=== PATIENT | male | born 1980 | race Caucasian/White ===

== ENCOUNTER 2018-10-15 05:50 | Day surgery (SDC) | payer BC, OTHER ==
[2018-10-15] MEDS: Lactated Ringers 1,000 ML IV SCH (06:15)
[2018-10-15] MEDS ORDERED: DIPRIVAN 200 MG/20 ML IV ONE ×3 (07:38→08:08)
[2018-10-15 09:20] VITALS: O2SAT 98
[2018-10-15 09:31] VITALS: BP 132/70
[2018-10-15 09:37] VITALS: PULSE 75
--- NOTE | 2018-10-15 11:37 | OP ---
SURGERY DATE/TIME: 10/15/2018 0800 PREOPERATIVE DIAGNOSES: 1) Gastroesophageal reflux. 2) Rectal bleeding. POSTOPERATIVE DIAGNOSES: 1) Mild gastritis. 2) Gastric fundal polyp. 3) Pedunculated polyp in the ascending colon. 4) Small sessile polyp in ascending colon. PROCEDURES: 1) Esophagogastroduodenoscopy with cold forceps biopsy. 2) Colonoscopy with polypectomy using hot snare. SURGEON: Dr. Malik. ANESTHESIA: Medications were given by the anesthesia department. HISTORY: The patient is a 38 year old white male who presented to the office with complaints of persistent gastroesophageal reflux pain. He also recently had been noticing rectal bleeding although he felt no hemorrhoids. He reports the bleeding is usually at the beginning of the bowel movement and painless. The patient was felt the need to have endoscopic evaluation. He was appraised of the risks of the procedure including the risk of perforation, phlebitis, untoward reaction to medication, bleeding and missed lesions. The patient verbalized his understanding and desired to have the procedure performed. DESCRIPTION OF PROCEDURE: The patient was given the medications by the anesthesia department. He had continuous pulse oximetry, ECG monitoring, intermittent blood pressure monitoring and tidal CO2 monitoring during the examination. He was placed in the left lateral decubitus position. A bite block was placed and the flexible Olympus gastroscope was used to intubate the oropharynx. A view of the larynx was obtained and was normal. The scope was easily introduced in the esophagus which was normal throughout its length. The stomach was entered. The gastric nunez was suctioned dry and stomach was re-insufflated. The gastric rugal folds distended nicely with the insufflation of air. The scope was passed along the greater curvature of the stomach to the antrum. The pylorus encountered and intubated. Duodenum inspected and found to be normal. The scope is withdrawn from the duodenum. Next, the scope was retroflexed revealing a small gastric fundal polyp. No other mucosal lesions being encountered here the scope was redirected towards the gastric antrum. Biopsies were obtained to rule out the presence of Helicobacter pylori-type organisms using cold forceps biopsy was also obtained from the gastric fundal polyp. The scope was then removed from the patient. Next, a digital rectal exam was performed and revealed normal anal sphincter tone, no masses and normal prostate. No evidence of bleeding was noted at this time. The flexible Olympus pediatric colonoscope was used to intubate the rectum. A view of the colon was developed sequentially to the cecum including a short distance in the terminal ileum. Upon insertion and withdrawal, including a retroflex view in the rectum was noted a small polyp that was pedunculated in the ascending colon this was removed using hot polypectomy snare retrieved for pathologic evaluation. There was also noted a sessile polyp very small noted in the ascending and in the descending colon, this is biopsied using cold forceps technique. The scope was removed from the patient who tolerated the procedure well and was sent back to OP recovery in good condition. The prep was noted to be good.
== END 2018-10-15 09:45 | disposition home or self-care (01) ==
LOC: SDC 05:50
PROVIDERS: ATTEND Family Medicine
DX: K29.70 Gastritis, unspecified, without bleeding (principal); K21.9 Gastro-esophageal reflux disease without esophagitis; K63.5 Polyp of colon; K31.7 Polyp of stomach and duodenum; D12.2 Benign neoplasm of ascending colon; D12.4 Benign neoplasm of descending colon
CPT/HCPCS: J2704

== ENCOUNTER 2022-07-22 06:06 | Day surgery (SDC) | payer BC, OTHER ==
[2022-07-22] MEDS ORDERED: Lactated Ringers 1,000 ML IV SCH (06:30)
[2022-07-22] MEDS ORDERED: Versed 2 MG/2 ML Injection ONE (07:32)
[2022-07-22] MEDS ORDERED: DIPRIVAN 200 MG/20 ML IV ONE ×2 (07:32→07:46)
[2022-07-22] MEDS ORDERED: SUBLIMAZE 100 MCG/2 ML ONE (07:47)
[2022-07-22 08:40] VITALS: BP 146/95; PULSE 62; O2SAT 94
--- NOTE | 2022-07-22 09:33 | OP ---
SURGERY DATE: 07/22/2022 SURGERY TIME: 734 PREOPERATIVE DIAGNOSIS: 1. RECTAL BLEEDING. POSTOPERATIVE DIAGNOSIS: 1. SMALL POLYPS IN THE TRANSVERSE AND DESCENDING COLON, OTHERWISE NORMAL COLON. PROCEDURE: 1. Colonoscopy. SURGEON: Dr. Malik. ANESTHESIA: MAC. Medications given by the Anesthesia Department. BRIEF HISTORY: The patient is a 41 y/o WM patient presenting now for colonoscopic evaluation. He reported he had some rectal bleeding. The patient was felt to need to have endoscopic evaluation. He was described the risks of the procedure including the risk of perforation, phlebitis, untoward reaction to medication, bleeding, and missed lesions. The patient verbalized his understanding and desired to have the procedure performed. DESCRIPTION OF PROCEDURE: The patient was given the medications by the Anesthesia Department. He had continuous pulse oximetry, ECG monitoring, and intermittent BP monitoring during the examination. He was placed in the left lateral decubitus position. A digital rectal examination was performed and revealed normal anal sphincter tone, no masses, and a normal prostate. The flexible Olympus pediatric colonoscope was used to intubate the rectum. A view of the colon was developed sequentially to the cecum including a short distance into the terminal ileum. Upon insertion and withdrawal, was noted a small polyp in the transverse colon. This was biopsied and destroyed using multiple passes of the cold forceps biopsy. There was also noted a 2nd slightly larger polyp measuring approximately 1 cm in size in the descending colon. This was likewise treated with passes of the cold forceps biopsy to destroy the lesion. No other mucosal lesions being encountered, the scope was removed from the patient who tolerated the procedure well and was sent back to OP recovery in good condition. The prep was noted to be good.
== END 2022-07-22 08:52 | disposition home or self-care (01) ==
LOC: SDC 06:06
PROVIDERS: ATTEND Family Medicine
DX: K62.5 Hemorrhage of anus and rectum (principal); D12.3 Benign neoplasm of transverse colon; D12.4 Benign neoplasm of descending colon
CPT/HCPCS: J2250; J2704; J3010

== ENCOUNTER 2023-01-24 09:10 | Emergency (ER) | payer BC, OTHER ==
[2023-01-24 09:15] VITALS: TEMP 97.9
[2023-01-24] MEDS ORDERED: MORPHINE SULFATE 2 MG INJ IV ONE (09:17)
[2023-01-24] MEDS ORDERED: Zofran 4 MG/2 ML VIAL IV ONE (09:17)
[2023-01-24] MEDS ORDERED: BABY ASPIRIN 81 MG CHEW PO ONE (09:17)
--- NOTE | 2023-01-24 09:17 | ERPHSYRPT ---
- History of Present Illness Time Seen by Provider: 01/24/23 09:12 Historian: patient Exam Limitations: no limitations Physician History: This is a 42-year-old white male patient who has no known cardiac issues and presents with sudden onset of central chest pain that is sharp and stabbing and goes into his back between the shoulder blades. He has associated myalgias and arthralgias. He has never had anything like this before. He does have a history of gastroesophageal reflux disease. Patient went to [facility] earlier today and had a COVID swab which was negative per his report. Patient has lost his appetite and has not eaten in 2 days Timing/Duration: yesterday (At noon) Quality: sharpness, stabbing Location: substernal, central Chest Pain Radiation: back Severity of Pain-Max: moderate Severity of Pain-Current: moderate Modifying Factors: Improves With: nothing Prior Chest Pain/Cardiac Workup: no prior chest pain Nitro Today/Relief: no nitro taken today Aspirin Treatment Today: no aspirin today Allergies/Adverse Reactions: Penicillins Allergy (Mild, Verified 01/24/23 09:14) Diarrhea pt not sure, states was a child Home Medications: Omeprazole 20 mg PO DAILY 07/22/22 [History] Famotidine 20 mg [Pepcid 20 MG] 1 ea DAILY 01/24/23 [History] Hx Tetanus, Diphtheria Vaccination/Date Given: Yes (2002) Hx Influenza Vaccination/Date Given: No Hx Pneumococcal Vaccination/Date Given: No Travel Risk - International Travel Have you traveled outside of the country in past 3 weeks: No - Coronavirus Screening Are you exhibiting any of the following symptoms?: Yes Symptoms: Headaches/Body Aches/Fatigue Close contact with a COVID-19 positive Pt in past 14-21 Days: No - Review of Systems Constitutional: No Symptoms Eyes: No Symptoms Ears, Nose, & Throat: No Symptoms Respiratory: No Symptoms Cardiac: Chest Pain Abdominal/Gastrointestinal: No Symptoms Genitourinary Symptoms: No Symptoms Musculoskeletal: Arthralgias, Myalgias Skin: No Symptoms Neurological: No Symptoms Psychological: No Symptoms Endocrine: No Symptoms Hematologic/Lymphatic: No Symptoms Immunological/Allergic: No Symptoms All Other Systems: Reviewed and Negative - Past Medical History Pertinent Past Medical History: No Neurological History: No Pertinent History ENT History: No Pertinent History Cardiac History: No Pertinent History Respiratory History: No Pertinent History Endocrine Medical History: No Pertinent History Musculoskeletal History: No Pertinent History GI Medical History: No Pertinent History History: No Pertinent History Psycho-Social History: No Pertinent History Male Reproductive Disorders: No Pertinent History - Past Surgical History Past Surgical History: Yes Neuro Surgical History: No Pertinent History Cardiac: No Pertinent History Respiratory: No Pertinent History Gastrointestinal: No Pertinent History Genitourinary: No Pertinent History Musculoskeletal: Amputation Male Surgical History: No Pertinent History Other Surgical History: LEFT MIDDLE 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 - Social History Smoking Status: Never smoker Exposure to second hand smoke: Yes Alcohol Use: None Drug Use: none Patient Lives Alone: No Significant Family History: no pertinent family hx - Nursing Vital Signs Nursing Vital Signs: Initial Vital Signs O2 Sat by Pulse Oximetry 98 01/24/23 09:11 Pain Scale Pain Intensity 0 - Physical Exam General Appearance: mild distress, alert, anxiety Eye Exam: PERRL/EOMI, eyes nml inspection Ears, Nose, Throat Exam: normal ENT inspection, moist mucous membranes Neck Exam: normal inspection, non-tender, supple, full range of motion Respiratory Exam: normal breath sounds, chest tenderness, lungs clear, airway intact, No respiratory distress Cardiovascular Exam: regular rate/rhythm, normal heart sounds, normal peripheral pulses Gastrointestinal/Abdomen Exam: soft, normal bowel sounds, No tenderness Rectal Exam: not done Back Exam: normal inspection, normal range of motion, No CVA tenderness, No vertebral tenderness Extremity Exam: normal inspection, normal range of motion, pelvis stable Neurologic Exam: alert, oriented x 3, cooperative, brick sorter II-XII nml as tested, normal mood/affect, nml cerebellar function, nml station & gait, sensation nml Skin Exam: normal color, warm, dry Lymphatic Exam: No adenopathy SpO2 Interpretation: normal O2 Delivery: Room Air - Course Nursing assessment & vital signs reviewed: Yes EKG Interpreted by Me: RATE (82), Sinus Rhythm, NORMAL AXIS, NORMAL INTERVALS, NORMAL QRS, NORMAL ST-T, Other (No acute ischemic changes on today's twelve-lead EKG. 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 Care 01/24/23 09:17 Active EKG-ER Only STAT Care 01/24/23 09:17 Active IV Insertion STAT Care 01/24/23 09:17 Active Pulse Oximetry (ED) STAT Care 01/24/23 09:17 Active CHEST WITH CONTRAST [CT] Stat Exams 01/24/23 09:57 Completed CBC W DIFF Stat Lab 01/24/23 09:20 Completed CMP Stat Lab 01/24/23 09:20 Completed D-DIMER QUANTITATIVE Stat Lab 01/24/23 09:20 Completed TROPONIN Q4H Lab 01/24/23 09:20 Completed TROPONIN Q4H Lab 01/24/23 13:30 Ordered TROPONIN Q4H Lab 01/24/23 17:30 Ordered Medication Summary Discontinued Medications Generic Name Dose Route Start Last Admin Trade Name Evanq PRN Reason Stop Dose Admin Aspirin 324 mg 01/24/23 09:17 01/24/23 09:29 Aspirin 81 Mg Tab.Chew PO 01/24/23 09:18 324 mg STAT ONE Administration Aspirin Confirm 01/24/23 09:28 Aspirin 81 Mg Tab.Chew Administered 01/24/23 09:29 Dose 324 mg .ROUTE .STK-MED ONE Sodium Chloride 500 mls @ 500 mls/hr 01/24/23 09:58 01/24/23 10:10 Sodium Chloride 0.9% 500 Ml IV 01/24/23 10:57 500 mls/hr .Q1H ONE Administration Sodium Chloride Confirm 01/24/23 10:10 Sodium Chloride 0.9% 500 Ml Administered 01/24/23 10:11 Dose 500 mls @ ud IV .STK-MED ONE Morphine Sulfate 2 mg 01/24/23 09:17 01/24/23 09:29 Morphine Sulfate 2 Mg/Ml Inj IV 01/24/23 09:18 2 mg STAT ONE Administration Morphine Sulfate Confirm 01/24/23 09:28 Morphine Sulfate 2 Mg/Ml Inj Administered 01/24/23 09:29 Dose 2 mg .ROUTE .STK-MED ONE Ondansetron HCl 4 mg 01/24/23 09:17 01/24/23 09:29 Ondansetron Hcl 4 Mg/2 Ml Vial IV 01/24/23 09:18 4 mg STAT ONE Administration Ondansetron HCl Confirm 01/24/23 09:27 Ondansetron Hcl 4 Mg/2 Ml Vial Administered 01/24/23 09:28 Dose 4 mg .ROUTE .STK-MED ONE Lab/Rad Data: Laboratory Result Diagrams 01/24/23 09:20 01/24/23 09:20 Laboratory Results 01/24/23 01/24/23 01/24/23 Range/Units 09:20 09:20 09:20 WBC (4.0-10.5) x10^3/uL RBC (4.1-5.6) x10^6/uL Hgb (12.5-18.0) g/dL Hct (42-50) % MCV (78-100) fL MCH (26-32) pg MCHC (32-36) g/dL RDW (11.5-14.0) % Plt Count (150-450) x10^3/uL MPV (7.5-11.0) fL Gran % (36.0-66.0) % Immature Gran % (Auto) (0.00-0.4) % Nucleat RBC Rel Count (0.00-0.1) % Eos # (Auto) (0-0.5) x10^3/uL Immature Gran # (Auto) (0.00-0.03) x10^3u/L Absolute Lymphs (auto) (1.0-4.6) x10^3/uL Absolute Monos (auto) (0.0-1.3) x10^3/uL Absolute Nucleated RBC (0.00-0.01) x10^3u/L Lymphocytes % (24.0-44.0) % Monocytes % (0.0-12.0) % Eosinophils % (0.00-5.0) % Basophils % (0.0-0.4) % Absolute Granulocytes (1.4-6.9) x10^3/uL Basophils # (0-0.4) x10^3/uL D-Dimer 1.85 H* (0.0-0.50) mg/L Sodium 140 (137-145) mmol/L Potassium 3.8 (3.5-5.1) mmol/L Chloride 106 (98-107) mmol/L Carbon Dioxide 22 (22-30) mmol/L Anion Gap 16.8 H (5-15) MEQ/L BUN 15 (9-20) mg/dL Creatinine 1.00 (0.66-1.25) mg/dL Estimated GFR > 60.0 ML/MIN Glucose 110 H (74-106) mg/dL Calcium 9.0 (8.4-10.2) mg/dL Total Bilirubin 1.30 (0.2-1.3) mg/dL AST 28 (17-59) U/L ALT 28 (0-50) U/L Alkaline Phosphatase 86 (38-126) U/L Troponin I < 0.012 (0.000-0.034) ng/mL Serum Total Protein 7.5 (6.3-8.2) g/dL Albumin 4.6 (3.5-5.0) g/dL 01/24/23 Range/Units 09:20 WBC 16.1 H (4.0-10.5) x10^3/uL RBC 5.31 (4.1-5.6) x10^6/uL Hgb 16.6 (12.5-18.0) g/dL Hct 49.4 (42-50) % MCV 93.0 (78-100) fL MCH 31.3 (26-32) pg MCHC 33.6 (32-36) g/dL RDW 12.1 (11.5-14.0) % Plt Count 244 (150-450) x10^3/uL MPV 10.0 (7.5-11.0) fL Gran % 90.7 H (36.0-66.0) % Immature Gran % (Auto) 0.4 (0.00-0.4) % Nucleat RBC Rel Count 0.0 (0.00-0.1) % Eos # (Auto) 0 (0-0.5) x10^3/uL Immature Gran # (Auto) 0.07 H (0.00-0.03) x10^3u/L Absolute Lymphs (auto) 0.73 L (1.0-4.6) x10^3/uL Absolute Monos (auto) 0.66 (0.0-1.3) x10^3/uL Absolute Nucleated RBC 0.00 (0.00-0.01) x10^3u/L Lymphocytes % 4.5 L (24.0-44.0) % Monocytes % 4.1 (0.0-12.0) % Eosinophils % 0.0 (0.00-5.0) % Basophils % 0.3 (0.0-0.4) % Absolute Granulocytes 14.57 H (1.4-6.9) x10^3/uL Basophils # 0.05 (0-0.4) x10^3/uL D-Dimer (0.0-0.50) mg/L Sodium (137-145) mmol/L Potassium (3.5-5.1) mmol/L Chloride (98-107) mmol/L Carbon Dioxide (22-30) mmol/L Anion Gap (5-15) MEQ/L BUN (9-20) mg/dL Creatinine (0.66-1.25) mg/dL Estimated GFR ML/MIN Glucose (74-106) mg/dL Calcium (8.4-10.2) mg/dL Total Bilirubin (0.2-1.3) mg/dL AST (17-59) U/L ALT (0-50) U/L Alkaline Phosphatase (38-126) U/L Troponin I (0.000-0.034) ng/mL Serum Total Protein (6.3-8.2) g/dL Albumin (3.5-5.0) g/dL - Progress Progress: improved, re-examined Progress Note: 01/24/23 09:15 This patient's medical issue is 1 of moderate complexity. Level complex in the work-up performed is based on review of the patient's past medical history, review the patient's medication list, review the patient's drug allergy list, history of present illness and physical findings on examination. The work-up in this patient includes placement of an intravenous line, infusion of 2 mg morphine and infusion of 4 mg intravenous Zofran, 4 baby aspirin orally, CBC, CMP, troponin level, D-dimer level and twelve-lead EKG. We will wait for the D- dimer level to return before either performing a chest x-ray or CTA of the chest if indicated. This way we will avoid excess radiation. 01/24/23 11:14 This patient had an elevated D-dimer and therefore we ordered a CT scan of the chest with contrast. CT scan of the chest shows no pulmonary embolism. No evidence of infiltrate. Patient's symptoms have significantly improved. The patient does have leukocytosis. We will treat him as though he has an upper respiratory infection. We will provide him with prescriptions of steroids, Z- [place] and hydrocodone elixir. 01/24/23 11:21 Blood Culture(s) Obtained: No Antibiotics given: No Counseled pt/family regarding: lab results, diagnosis, need for follow-up, rad results Medical Desision Making - Diagnostic Testing Diagnostic test were ordered, analyzed, and reviewed by me: Yes Radiological Interpretation: Reviewed by me, Teleradiologist Report - Risk of complications The pt has a mod risk of morbidity or mortality based on: Need for prescription drug management - Departure Departure Disposition: Home Clinical Impression: Leukocytosis, Upper respiratory infection Condition: Stable Critical Care Time: No Referrals: NAOMI MUNROE [Primary Care Provider] - Follow up/PCP as directed Additional Instructions: Drink plenty of fluids. Take your medication as prescribed. Call your Prescriptions: Hydrocodone/Acetaminophen [Hydrocodone-Acetamn 7.5-325/15] 10 ml PO Q8H PRN PRN #120 ml MDD 30 ml PRN Reason: Cough Prednisone 10 mg [Deltasone 10 mg] 10 mg PO TID #12 tablet Azithromycin 250 mg [Zithromax 250 MG TABLET] 250 mg PO ZPACK #6 tablet
[2023-01-24] MEDS ORDERED: Zofran 4 MG/2 ML VIAL ONE (09:27)
[2023-01-24] MEDS ORDERED: BABY ASPIRIN 81 MG CHEW ONE (09:28)
[2023-01-24] MEDS ORDERED: MORPHINE SULFATE 2 MG INJ ONE (09:28)
[2023-01-24 09:30] LABS: Absolute Neutrophil Ct (ANC) 14.57 x10^3/uL (1.4-6.9); BASOPHIL % 0.3 % (0.0-0.4); Basophil (Absolute #) 0.05 x10^3/uL (0-0.4); Eosinophil (Absolute #) 0 x10^3/uL (0-0.5); Hematocrit 49.4 % (42-50); Hemoglobin 16.6 g/dL (12.5-18.0); IMMATURE GRAN # 0.07 x10^3u/L (0.00-0.03); IMMATURE GRAN % 0.4 % (0.00-0.4); Lymphocyte (Absolute #) 0.73 x10^3/uL (1.0-4.6); Lymphocytes % 4.5 % (24.0-44.0); Mean Corpuscular Hemoglobin 31.3 pg (26-32); Mean Corpuscular Hgb Concent. 33.6 g/dL (32-36); Monocyte (Absolute #) 0.66 x10^3/uL (0.0-1.3); Monocytes % 4.1 % (0.0-12.0); Neutrophil % 90.7 % (36.0-66.0); Platelet Count 244 x10^3/uL (150-450); Red Blood Count 5.31 x10^6/uL (4.1-5.6); Red Cell Distribution Width 12.1 % (11.5-14.0); White Blood Count 16.1 x10^3/uL (4.0-10.5)
[2023-01-24 09:42] LABS: ALBUMIN 4.6 g/dL (3.5-5.0); ALKALINE PHOSPHATASE 86 U/L (38-126); ANION GAP 16.8 MEQ/L (5-15); BLOOD UREA NITROGEN 15 mg/dL (9-20); CHLORIDE 106 mmol/L (98-107); Carbon Dioxide 22 mmol/L (22-30); EST GLOMERULAR FILTRATION RATE > 60.0 ML/MIN; Glucose 110 mg/dL (74-106); Potassium 3.8 mmol/L (3.5-5.1); SGOT/AST 28 U/L (17-59); SGPT/ALT 28 U/L (0-50); SODIUM 140 mmol/L (137-145); Total Protein 7.5 g/dL (6.3-8.2)
[2023-01-24] MEDS ORDERED: Sodium Chloride 0.9% 500 ML 500 ML IV ONE ×2 (09:58→10:10)
--- NOTE | 2023-01-24 10:40 | XRAY ---
Indication: Chest pain, fever, body ache, and diarrhea. Multiple contiguous axial images obtained through the chest using 80 cc Isovue 370 contrast and PE protocol. Comparison: None Good opacification pulmonary arteries to include the lobar and segmental branches. No pulmonary embolus. Heart not enlarged. Aorta normal in course and caliber. Small left hilar calcified nodes. No pathologic mediastinal/hilar lymphadenopathy. Lungs are inflated and clear with incidental small lingula calcified granuloma. Bony thorax intact with minimal degenerative changes throughout the spine. Limited upper abdomen including adrenal glands are unremarkable. Impression: Normal CT pulmonary embolus exam. Incidental old granulomatous disease.
[2023-01-24 11:10] VITALS: BP 128/85; PULSE 76; RESP 20; O2SAT 98
== END 2023-01-24 11:43 | disposition home or self-care (01) ==
LOC: ED 09:10
DX: J06.9 Acute upper respiratory infection, unspecified (principal); D72.829 Elevated white blood cell count, unspecified; R07.9 Chest pain, unspecified; M79.10 Myalgia, unspecified site; Z79.891 Long term (current) use of opiate analgesic; Z79.52 Long term (current) use of systemic steroids
CPT/HCPCS: 36000; 36415; 71260; 80053; 84484; 85025; 85379; 93005; 93041; 94760; 96360; 96374; 96375; 99284; J2270; J2405; A9270-GY